=== PATIENT | male | born 1985 | race Caucasian/White ===

== ENCOUNTER 2020-08-10 17:50 | Emergency (ER) | payer OTHER | END 2020-08-10 19:33 | disposition home or self-care (01) | LOC: FER 17:50 | DX: S67.190A Crushing injury of right index finger, initial encounter (principal); S67.192A Crushing injury of right middle finger, initial encounter; S67.194A Crushing injury of right ring finger, initial encounter; Z23 Encounter for immunization; F17.210 Nicotine dependence, cigarettes, uncomplicated; Y92.89 Other specified places as the place of occurrence of the external cause; Y99.0 Civilian activity done for income or pay | CPT/HCPCS: 73130; 90471; 90715 ==